=== PATIENT | female | born 1970 | race Caucasian/White ===

== ENCOUNTER 2019-06-07 12:40 | Emergency (ER) | payer OTHER ==
[~2019-06-07] VITALS: Ht 165.1 cm; Wt 56.7 kg
== END 2019-06-07 15:44 | disposition home or self-care (01) ==
LOC: ER 12:40
DX: S20.212A Contusion of left front wall of thorax, initial encounter (principal); S20.211A Contusion of right front wall of thorax, initial encounter; V49.9XXA Car occupant (driver) (passenger) injured in unspecified traffic accident, initial encounter; Y93.89 Activity, other specified; Y92.488 Other paved roadways as the place of occurrence of the external cause; Y99.8 Other external cause status